=== PATIENT | female | born 1995 | race American Indian/Alaskan Native ===

== ENCOUNTER 2017-04-29 17:07 | Emergency (ER) | payer SELFPAY ==
--- NOTE | 2017-04-29 17:43 | Emergency Department Report ---
Chief Complaint: Dizziness Stated Complaint: VOMITING, DIZZY - HPI History of Present Illness: This is a 21-year-old female that presents with dizziness and nausea 2 days. Patient stated dizziness caused her to be nauseous. Denies any chest pain, shortness of breath, calf pain, calf tenderness, hemoptysis, fever, chills, numbness or tingling. Patient states she had a panic attack the past couple days. Patient denies any allergies past medical history hypertension. - Exam Vital Signs: Vital Signs 04/29/17 17:33 Temperature 99.3 F Pulse Rate 95 H Respiratory 18 Rate Blood Pressure 137/96 O2 Sat by Pulse 100 Oximetry Physical Exam: GENERAL: The patient is a well-developed, well-nourished female in no apparent distress. Patient is alert and acting appropriately for age. Alert and oriented 3, no apparent distress, normal gait, atraumatic. LUNGS: Clear to auscultation. Non labor breathing. No intercostal retractions. Symmetrical with respiration, no wheezing, no rales, or crackles. HEART: Regular rate and rhythm without murmur, rubs or gallops. No reproducible. S1, S2 present, regular rate and rhythm without murmur, no rubs, no gallops. NEUROLOGIC: Cranial nerves II through XII are grossly intact. Alert and oriented x 3. Normal gait. Symmetrical strength and sensation. Reflexes 2+ throughout. Cerebellar testing normal. GCS score of 15. MSE screening note: Focused history and physical exam performed. Due to findings the following was ordered: 1- This initial assessment/diagnostic orders/clinical plan/ treatment(s) is/are subject to change based on pt's health status, clinical progression and re- assessment by fellow clinical providers in the ED. Further treatment and workup at subsequent clinical provers discretion. Patient/guardians urged not to elope from ED as their condition may be serious if not clinically assessed and managed. 2-EKG, orthostatic vital signs 3-CBC, CMP, UA, serum test ED Disposition for MSE Condition: Stable
[2017-04-29 18:04] LABS: Basophils % (Auto) 0.2 % (0.0-1.8); Eosinophils % (Auto) 0.1 % (0.0-4.3); Hematocrit 42.1 % (30.3-42.9); Hemoglobin 14.2 gm/dl (10.1-14.3); Mean Corpuscular HGB Conc 34 % (30-34); Mean Corpuscular Hemoglobin 31 pg (28-32); Mean Corpuscular Volume 91 fl (79-97); Platelet Count 308 K/mm3 (140-440); Red Blood Count 4.61 M/mm3 (3.65-5.03); Red Cell Distribution Width 12.5 % (13.2-15.2); White Blood Count 13.1 K/mm3 (4.5-11.0)
[2017-04-29 18:24] LABS: Alanine Aminotransferase 28 units/L (7-56); Albumin 4.3 g/dL (3.9-5); Albumin/Globulin Ratio 1.1 %; Alkaline Phosphatase 74 units/L (35-129); Anion Gap 19 mmol/L; BUN/Creatinine Ratio 15; Blood Urea Nitrogen 9 mg/dL (7-17); Calcium 9.3 mg/dL (8.4-10.2); Carbon Dioxide 25 mmol/L (22-30); Glucose 98 mg/dL (65-100); Potassium 3.3 mmol/L (3.6-5.0); Sodium 144 mmol/L (137-145); Total Protein 8.1 g/dL (6.3-8.2)
[2017-04-29 18:47] LABS: Bacteria,Urine 2+ /HPF (Negative); Bilirubin,Urine NEG (Negative); Blood,Urine LG (Negative); Ketones,Urine TR mg/dL (Negative); Leukocyte Esterase,Urine SM (Negative); Mucus,Urine 3+ /HPF; Nitrite,Urine POS (Negative); Urobilinogen,Urine < 2.0 mg/dL (<2.0)
[2017-04-29] MEDS ORDERED: ZOFRAN ODT PO ONE (23:19)
[2017-04-30] MEDS ORDERED: BACTRIM DS PO ONE (01:12)
--- NOTE | 2017-04-30 01:17 | Emergency Department Report ---
ED General Adult HPI - General Chief complaint: Dizziness Stated complaint: VOMITING, DIZZY Time Seen by Provider: 04/29/17 23:19 Source: patient Mode of arrival: Ambulatory Limitations: No Limitations - History of Present Illness Initial comments: Patient is a 21-year-old female past history of recurrent UTIs who presents with tooth pain and nausea and vomiting. Patient states that nausea and vomiting has been going on for the last 3 days. Patient states that vomiting is nonbloody nonbilious she says she hasn't been able to tolerate much orally. She states that she only has some slight abdominal pain there is a 3 out of 10 in severity stab sharp like pain located diffusely throughout her belly. It occurs when she vomits. Patient also states that she has some upper tooth pain that has been going on for a couple days as well. She denies having any bloody stools chest pain or any shortness of breath. Severity scale (0 -10): 0 - Related Data Previous Rx's Medication Instructions Recorded Last Taken Type Ondansetron [Zofran Odt] 4 mg PO Q8HR PRN #15 tab.rapdis 04/30/17 Unknown Rx Penicillin V Potassium 500 mg PO Q6HR #28 tablet 04/30/17 Unknown Rx Sulfamethoxazole/Trimethoprim 1 each PO BID #10 tablet 04/30/17 Unknown Rx [Bactrim DS TAB] Allergies Allergy/AdvReac Type Severity Reaction Status Date / Time No Known Allergies Allergy Unverified 04/29/17 17:37 ED Review of Systems ROS: Stated complaint: VOMITING, DIZZY Other details as noted in HPI Constitutional: denies: chills, fever Eyes: denies: eye pain, eye discharge, vision change ENT: dental pain. denies: ear pain, throat pain Respiratory: denies: cough, shortness of breath, wheezing Cardiovascular: denies: chest pain, palpitations Endocrine: no symptoms reported Gastrointestinal: nausea, vomiting. denies: abdominal pain, diarrhea Genitourinary: denies: urgency, dysuria, discharge Musculoskeletal: denies: back pain, joint swelling, arthralgia Skin: denies: rash, lesions Neurological: denies: headache, weakness, paresthesias Psychiatric: denies: anxiety, depression Hematological/Lymphatic: denies: easy bleeding, easy bruising ED Past Medical Hx - Past Medical History Hx Hypertension: Yes () - Surgical History Additional Surgical History: tonsillectomy - Social History Smoking Status: Never Smoker Substance Use Type: Alcohol - Medications Home Medications: Home Medications Medication Instructions Recorded Confirmed Last Taken Type Ondansetron [Zofran Odt] 4 mg PO Q8HR PRN #15 tab.rapdis 04/30/17 Unknown Rx Penicillin V Potassium 500 mg PO Q6HR #28 tablet 04/30/17 Unknown Rx Sulfamethoxazole/Trimethoprim 1 each PO BID #10 tablet 04/30/17 Unknown Rx [Bactrim DS TAB] ED Physical Exam - General Limitations: No Limitations General appearance: alert, in no apparent distress - Head Head exam: Present: atraumatic, normocephalic - Eye Eye exam: Present: normal appearance - ENT ENT exam: Present: mucous membranes moist - Neck Neck exam: Present: normal inspection - Respiratory Respiratory exam: Present: normal lung sounds bilaterally. Absent: respiratory distress - Cardiovascular Cardiovascular Exam: Present: regular rate, normal rhythm. Absent: systolic murmur, diastolic murmur, rubs, gallop - GI/Abdominal GI/Abdominal exam: Present: soft, normal bowel sounds - Extremities Exam Extremities exam: Present: normal inspection - Back Exam Back exam: Present: normal inspection - Neurological Exam Neurological exam: Present: alert, oriented X3 - Psychiatric Psychiatric exam: Present: normal affect, normal mood - Skin Skin exam: Present: warm, dry, intact, normal color. Absent: rash ED Course Vital Signs 04/29/17 04/29/17 04/29/17 17:33 21:41 21:44 Temperature 99.3 F 98.3 F Pulse Rate 95 H 99 H Respiratory 18 20 Rate Blood Pressure 137/96 137/85 O2 Sat by Pulse 100 98 100 Oximetry 04/29/17 04/29/17 04/29/17 23:00 23:16 23:30 Temperature Pulse Rate 101 H 110 H Respiratory 26 H 13 22 Rate Blood Pressure 131/87 134/85 O2 Sat by Pulse 100 99 100 Oximetry 04/29/17 23:46 Temperature Pulse Rate 89 Respiratory 14 Rate Blood Pressure 134/85 O2 Sat by Pulse 98 Oximetry ED Medical Decision Making - Lab Data Result diagrams: 04/29/17 17:47 04/29/17 17:47 Lab Results 04/29/17 04/29/17 04/29/17 Range/Units 17:47 17:47 17:47 WBC 13.1 H (4.5-11.0) K/mm3 RBC 4.61 (3.65-5.03) M/mm3 Hgb 14.2 (10.1-14.3) gm/dl Hct 42.1 (30.3-42.9) % MCV 91 (79-97) fl MCH 31 (28-32) pg MCHC 34 (30-34) % RDW 12.5 L (13.2-15.2) % Plt Count 308 (140-440) K/mm3 Lymph % (Auto) 23.9 (13.4-35.0) % [place] % (Auto) 7.7 H (0.0-7.3) % Eos % (Auto) 0.1 (0.0-4.3) % Baso % (Auto) 0.2 (0.0-1.8) % Lymph # 3.1 (1.2-5.4) K/mm3 Jessamine # 1.0 H (0.0-0.8) K/mm3 Eos # 0.0 (0.0-0.4) K/mm3 Baso # 0.0 (0.0-0.1) K/mm3 Seg Neutrophils % 68.1 (40.0-70.0) % Seg Neutrophils # 8.9 H (1.8-7.7) K/mm3 Sodium 144 (137-145) mmol/L Potassium 3.3 L (3.6-5.0) mmol/L Chloride 103.0 (98-107) mmol/L Carbon Dioxide 25 (22-30) mmol/L Anion Gap 19 mmol/L BUN 9 (7-17) mg/dL Creatinine 0.6 L (0.7-1.2) mg/dL Estimated GFR > 60 ml/min BUN/Creatinine Ratio 15 % Glucose 98 (65-100) mg/dL Calcium 9.3 (8.4-10.2) mg/dL Total Bilirubin 0.40 (0.1-1.2) mg/dL AST 20 (5-40) units/L ALT 28 (7-56) units/L Alkaline Phosphatase 74 (35-129) units/L Total Protein 8.1 (6.3-8.2) g/dL Albumin 4.3 (3.9-5) g/dL Albumin/Globulin Ratio 1.1 % HCG, Qual Negative (Negative) Urine Color (Yellow) Urine Turbidity (Clear) Urine pH (5.0-7.0) Ur Specific [place] (1.003-1.030) Urine Protein (Negative) mg/dL Urine Glucose (UA) (Negative) mg/dL Urine Ketones (Negative) mg/dL Urine Blood (Negative) Urine Nitrite (Negative) Urine Bilirubin (Negative) Urine Urobilinogen (<2.0) mg/dL Ur Leukocyte Esterase (Negative) Urine WBC (Auto) (0.0-6.0) /HPF Urine RBC (Auto) (0.0-6.0) /HPF U Epithel Cells (Auto) (0-13.0) /HPF Urine Bacteria (Auto) (Negative) /HPF Urine Mucus /HPF 04/29/17 Range/Units 18:33 WBC (4.5-11.0) K/mm3 RBC (3.65-5.03) M/mm3 Hgb (10.1-14.3) gm/dl Hct (30.3-42.9) % MCV (79-97) fl MCH (28-32) pg MCHC (30-34) % RDW (13.2-15.2) % Plt Count (140-440) K/mm3 Lymph % (Auto) (13.4-35.0) % [place] % (Auto) (0.0-7.3) % Eos % (Auto) (0.0-4.3) % Baso % (Auto) (0.0-1.8) % Lymph # (1.2-5.4) K/mm3 [place] # (0.0-0.8) K/mm3 Eos # (0.0-0.4) K/mm3 Baso # (0.0-0.1) K/mm3 Seg Neutrophils % (40.0-70.0) % Seg Neutrophils # (1.8-7.7) K/mm3 Sodium (137-145) mmol/L Potassium (3.6-5.0) mmol/L Chloride (98-107) mmol/L Carbon Dioxide (22-30) mmol/L Anion Gap mmol/L BUN (7-17) mg/dL Creatinine (0.7-1.2) mg/dL Estimated GFR ml/min BUN/Creatinine Ratio % Glucose (65-100) mg/dL Calcium (8.4-10.2) mg/dL Total Bilirubin (0.1-1.2) mg/dL AST (5-40) units/L ALT (7-56) units/L Alkaline Phosphatase (35-129) units/L Total Protein (6.3-8.2) g/dL Albumin (3.9-5) g/dL Albumin/Globulin Ratio % HCG, Qual (Negative) Urine Color Dark yellow (Yellow) Urine Turbidity Hazy (Clear) Urine pH 5.0 (5.0-7.0) Ur Specific [place] 1.027 (1.003-1.030) Urine Protein 30 mg/dl (Negative) mg/dL Urine Glucose (UA) Neg (Negative) mg/dL Urine Ketones Tr (Negative) mg/dL Urine Blood Lg (Negative) Urine Nitrite Pos (Negative) Urine Bilirubin Neg (Negative) Urine Urobilinogen < 2.0 (<2.0) mg/dL Ur Leukocyte Esterase Sm (Negative) Urine WBC (Auto) 16.0 H (0.0-6.0) /HPF Urine RBC (Auto) 36.0 (0.0-6.0) /HPF U Epithel Cells (Auto) 4.0 (0-13.0) /HPF Urine Bacteria (Auto) 2+ (Negative) /HPF Urine Mucus 3+ /HPF - EKG Data -: EKG Interpreted by Or - EKG Data 04/30/17 01:19 EKG shows normal sinus rhythm no ST segment elevation noted T-wave inversion normal axis - Medical Decision Making Chief medical diagnosis: UTI Differential diagnosis: Gastroenteritis, hyponatremia, hypokalemia, periapical abscess I will get urinalysis, CBC, CMP, oral Zofran, oral Bactrim and by mouth challenge Patient is feeling better after Zofran and by mouth challenge I will send patient home with Bactrim, Zofran and penicillin. Discussed outpatient patient agrees to plan additional verbal discharge instructions were given. Critical care attestation.: If time is entered above; I have spent that time in minutes in the direct care of this critically ill patient, excluding procedure time. ED Disposition Clinical Impression: Periapical abscess Nausea and vomiting Qualifiers: Vomiting type: unspecified Vomiting Intractability: non-intractable Qualified Code(s): R11.2 - Nausea with vomiting, unspecified UTI (urinary tract infection) Qualifiers: Urinary tract infection type: acute cystitis Hematuria presence: without hematuria Qualified Code(s): N30.00 - Acute cystitis without hematuria Disposition: TO HOME OR SELFCARE Is pt being admited?: No Does the pt Need Aspirin: No Condition: Stable Instructions: Urinary Tract Infection in Women (ED), Acute Nausea and Vomiting (ED), Dental Abscess (ED) Prescriptions: Ondansetron [Zofran Odt] 4 mg PO Q8HR PRN #15 tab.rapdis PRN Reason: Nausea Penicillin V Potassium 500 mg PO Q6HR #28 tablet Sulfamethoxazole/Trimethoprim [Bactrim DS TAB] 1 each PO BID #10 tablet Referrals: JOYA AHN MD [Staff Physician] - 3-5 Days
[2017-04-30 02:05] VITALS: BP 123/75
== END 2017-04-30 02:07 | disposition home or self-care (01) ==
LOC: ED 17:07
DX: K04.7 Periapical abscess without sinus (principal); N30.00 Acute cystitis without hematuria; R11.2 Nausea with vomiting, unspecified
CPT/HCPCS: 36415; 80053; 81001; 84703; 85025; 93005; 93010; Q0162

== ENCOUNTER 2017-05-11 12:27 | Emergency (ER) | payer SELFPAY ==
[2017-05-11 13:08] VITALS: BP 137/81
[2017-05-11 14:08] LABS: Bacteria,Urine 2+ /HPF (Negative); Bilirubin,Urine NEG (Negative); Blood,Urine MOD (Negative); Ketones,Urine NEG (Negative); Leukocyte Esterase,Urine MOD (Negative); Mucus,Urine 3+ /HPF; Nitrite,Urine NEG (Negative); Urobilinogen,Urine < 2.0 mg/dL (<2.0)
[2017-05-11 14:11] LABS: RBC,Urine > 182.0 /HPF (0.0-6.0)
[2017-05-11 14:12] LABS: WBC,Urine > 182.0 /HPF (0.0-6.0)
[2017-05-11 14:12] LABS: Basophils % (Auto) 0.2 % (0.0-1.8); Eosinophils % (Auto) 2.5 % (0.0-4.3); Hematocrit 41.2 % (30.3-42.9); Hemoglobin 14.1 gm/dl (10.1-14.3); Mean Corpuscular HGB Conc 34 % (30-34); Mean Corpuscular Hemoglobin 31 pg (28-32); Mean Corpuscular Volume 92 fl (79-97); Platelet Count 238 K/mm3 (140-440); Red Blood Count 4.49 M/mm3 (3.65-5.03); White Blood Count 12.2 K/mm3 (4.5-11.0)
[2017-05-11] MEDS ORDERED: NACL 0.9% 1000 ML 1,000 ML IV ONE (14:24)
[2017-05-11] MEDS ORDERED: ROCEPHIN/NS 1 GM/50 ML 1 GM/50 ML BAG IV ONE (14:24)
[2017-05-11] MEDS ORDERED: NACL ONE (14:35)
[2017-05-11] MEDS ORDERED: ROCEPHIN ONE (14:36)
[2017-05-11] MEDS ORDERED: ROCEPHIN IV ONE (14:44)
[2017-05-11 15:00] LABS: Alanine Aminotransferase 62 units/L (7-56); Albumin 3.9 g/dL (3.9-5); Albumin/Globulin Ratio 1.2 %; Alkaline Phosphatase 63 units/L (35-129); Anion Gap 18 mmol/L; BUN/Creatinine Ratio 18; Blood Urea Nitrogen 9 mg/dL (7-17); Calcium 8.9 mg/dL (8.4-10.2); Carbon Dioxide 24 mmol/L (22-30); Chloride 102.2 mmol/L (98-107); Glucose 90 mg/dL (65-100); Lipase 17 units/L (13-60); Potassium 3.6 mmol/L (3.6-5.0); Sodium 141 mmol/L (137-145); Total Protein 7.2 g/dL (6.3-8.2)
[2017-05-11 15:01] LABS: Bilirubin,Direct < 0.2 mg/dL (0-0.2); Bilirubin,Indirect 0.1 mg/dL
--- NOTE | 2017-05-11 15:07 | Emergency Department Report ---
ED Female HPI - General Chief complaint: Urogenital-Female Stated complaint: ABDOMINAL PAIN/N/V Time Seen by Provider: 05/11/17 13:17 Source: patient Mode of arrival: Ambulatory Limitations: No Limitations - History of Present Illness Initial comments: This is a 21-year-old female nontoxic, well nourished in appearance, no acute signs of distress presents to the ED with c/o of dysuria, polyuria, pelvic pain and vaginal discharge x2 days. Patient describes vaginal discharge as white thick without foul odor. Patient denies any abdominal pain. PAtient stated she is not concerned about STD and does not want empirical treatment but does want testing. Patient denies any back pain, shortness of breathe, fever, chills, headache, nausea, vomiting, chest pain, shortness of breathe, stuff neck. Patient denies any allergies or PMH. MD Complaint: vaginal discharge, dysuria, pelvic pain -: Gradual, days(s) (2) Radiation: non-radiating Severity: mild Severity scale (0 -10): 8 Quality: cramping, burning (urination) Consistency: constant Improves with: none Worsens with: urination Are you Now?: No Last Menstrual Period: 03/29/17 EDC: 01/03/18 Associated Symptoms: vaginal discharge, abdominal pain (pelvic pain), dysuria. denies: vaginal bleeding, nausea/vomiting, fever/chills, headaches, loss of appetite, hematuria, rash, seizure, shortness of breath, syncope, weakness - Related Data Previous Rx's Medication Instructions Recorded Last Taken Type Ondansetron [Zofran Odt] 4 mg PO Q8HR PRN #15 tab.rapdis 04/30/17 Unknown Rx Penicillin V Potassium 500 mg PO Q6HR #28 tablet 04/30/17 Unknown Rx Sulfamethoxazole/Trimethoprim 1 each PO BID #10 tablet 04/30/17 Unknown Rx [Bactrim DS TAB] Sulfamethoxazole/Trimethoprim 1 each PO BID #14 tablet 05/11/17 Unknown Rx [Bactrim DS TAB] Allergies Allergy/AdvReac Type Severity Reaction Status Date / Time No Known Allergies Allergy Unverified 04/29/17 17:37 ED Review of Systems ROS: Stated complaint: ABDOMINAL PAIN/N/V Other details as noted in HPI Constitutional: denies: chills, fever Eyes: denies: eye pain, eye discharge, vision change ENT: denies: ear pain, throat pain Respiratory: denies: cough, shortness of breath, wheezing Cardiovascular: denies: chest pain, palpitations Endocrine: no symptoms reported Gastrointestinal: other (pelvic pain). denies: abdominal pain, nausea, diarrhea Genitourinary: dysuria, frequency, discharge. denies: urgency Musculoskeletal: denies: back pain, joint swelling, arthralgia Skin: denies: rash, lesions Neurological: denies: headache, weakness, paresthesias Psychiatric: denies: anxiety, depression Hematological/Lymphatic: denies: easy bleeding, easy bruising ED Past Medical Hx - Past Medical History Hx Hypertension: Yes () - Surgical History Additional Surgical History: tonsillectomy - Social History Smoking Status: Current Every Day Smoker Substance Use Type: Alcohol - Medications Home Medications: Home Medications Medication Instructions Recorded Confirmed Last Taken Type Ondansetron [Zofran Odt] 4 mg PO Q8HR PRN #15 tab.rapdis 04/30/17 Unknown Rx Penicillin V Potassium 500 mg PO Q6HR #28 tablet 04/30/17 Unknown Rx Sulfamethoxazole/Trimethoprim 1 each PO BID #10 tablet 04/30/17 Unknown Rx [Bactrim DS TAB] Sulfamethoxazole/Trimethoprim 1 each PO BID #14 tablet 05/11/17 Unknown Rx [Bactrim DS TAB] ED Physical Exam - General Limitations: No Limitations General appearance: alert, in no apparent distress - Head Head exam: Present: atraumatic, normocephalic, normal inspection - Eye Eye exam: Present: normal appearance, PERRL, EOMI. Absent: scleral icterus, conjunctival injection, nystagmus, periorbital swelling, periorbital tenderness Pupils: Present: normal accommodation - ENT ENT exam: Present: normal exam, normal orophraynx, mucous membranes moist, TM's normal bilaterally, normal external ear exam - Neck Neck exam: Present: normal inspection, full ROM. Absent: tenderness, meningismus, lymphadenopathy, thyromegaly - Respiratory Respiratory exam: Present: normal lung sounds bilaterally. Absent: respiratory distress, wheezes, rales, rhonchi, stridor, chest wall tenderness, accessory muscle use, decreased breath sounds, prolonged expiratory - Cardiovascular Cardiovascular Exam: Present: regular rate, normal rhythm, normal heart sounds. Absent: irregular rhythm, systolic murmur, diastolic murmur, rubs, gallop - GI/Abdominal GI/Abdominal exam: Present: soft, normal bowel sounds. Absent: distended, tenderness, guarding, rebound, rigid, diminished bowel sounds - Expanded GI/Abdominal Exam Expanded GI/Abdominal exam: Absent: psoas sign, obturator sign, heel tap sign, Gomes's sign, Rovsing's sign, tenderness at Mcburney's Point - Rectal Rectal exam: Present: deferred - External exam: Present: normal external exam, other (chaperoned Onnie present during exam). Absent: erythema, swelling, lesions, lacerations, ecchymosis, bleeding Speculum exam: Present: normal speculum exam, cervical discharge (white/yellow with odor), other (chaperoned Onnie present during exam). Absent: erythema, vaginal discharge, vaginal bleeding, foreign body, tissue, laceration Bi-manual exam: Present: normal bi-manual exam, other (chaperoned Onnie present during exam). Absent: cervical motion tendernes, adnexal tenderness, adnexal mass, uterine enlargement, uterine tenderness - Extremities Exam Extremities exam: Present: normal inspection, full ROM, normal capillary refill. Absent: tenderness, pedal edema, joint swelling, calf tenderness - Back Exam Back exam: Present: normal inspection, full ROM. Absent: tenderness, CVA tenderness (R), CVA tenderness (L), muscle spasm, paraspinal tenderness, vertebral tenderness, rash noted - Neurological Exam Neurological exam: Present: alert, oriented X3, CN II-XII intact, normal gait, reflexes normal - Psychiatric Psychiatric exam: Present: normal affect, normal mood - Skin Skin exam: Present: warm, dry, intact, normal color. Absent: rash ED Course Vital Signs 05/11/17 13:02 Temperature 98.4 F Pulse Rate 100 H Respiratory 18 Rate Blood Pressure 137/81 O2 Sat by Pulse 99 Oximetry - Reevaluation(s) Reevaluation #1: 05/11/17 15:09 Patient is speaking in full sentences with no signs of distress noted. ED Medical Decision Making - Lab Data Result diagrams: 05/11/17 13:50 05/11/17 13:50 - Medical Decision Making This is a 21-year-old female that presents with UTI. Patient is stable and was examined by me. UA elevated RBC and WBC. Wet prep and G/C obtained. G/C pending. Wet prep negative with many polymophonuclearn cells. Patient was notified to return in 3 days to obtained results of G/C. CBC, CMP, Lip, serum obtained within normal. PAtient received 1G of Rocephin IV and Azithromycin 1g PO in the ED fopr UTI and possible STDF exposure. CT with contrast of abd/pelvis obtained and dictated by radiologist within normal limits. Patient notified of CT results with no further questions noted by the the patient. Patient received Bactrim at discharge. Patient was instructed Follow-up with a primary care doctor in 3-5 days or if symptoms worsen and continue return to emergency room as soon as possible. At time time of discharge, the patient does not seem toxic or ill in appearance. No acute signs of distress noted. Patient agrees to discharge treatment plan of care. No further questions noted by the patient. Critical care attestation.: If time is entered above; I have spent that time in minutes in the direct care of this critically ill patient, excluding procedure time. ED Disposition Clinical Impression: Possible exposure to STD UTI (urinary tract infection) Qualifiers: Urinary tract infection type: site unspecified Hematuria presence: with hematuria Qualified Code(s): N39.0 - Urinary tract infection, site not specified Disposition: DC-01 TO HOME OR SELFCARE Is pt being admited?: No Does the pt Need Aspirin: No Condition: Stable Instructions: Sulfamethoxazole/Trimethoprim (By mouth), Urinary Tract Infection in Women (ED) Additional Instructions: Follow-up with a primary care doctor in 3-5 days or if symptoms worsen and continue return to emergency room as soon as possible. Return in 3 days to obtain results of gonorrhea/chlamydia Prescriptions: Sulfamethoxazole/Trimethoprim [Bactrim DS TAB] 1 each PO BID #14 tablet Referrals: PRIMARY CAREMD [Primary Care Provider] - 3-5 Days MENDY GREER MD [Staff Physician] - 3-5 Days [facility] [Outside] - 3-5 Days [facility] [Outside] - 3-5 Days Forms: Work/School Release Form(ED)
--- NOTE | 2017-05-11 15:35 | Cat Scan Report ---
FINAL REPORT PROCEDURE: CT ABDOMEN PELVIS W CON TECHNIQUE: Computerized axial tomography of the abdomen and pelvis was performed after the IV injection of iodinated nonionic contrast. HISTORY: pelvic pain COMPARISON: No prior studies are available for comparison. FINDINGS: Visualized lower thorax: No significant abnormality. Liver: Normal size and attenuation. Spleen: Normal size and attenuation. Gallbladder and biliary system: Normal. Pancreas: Normal. Adrenals: Normal. Kidneys: Normal. GI tract: Normal. Lymph nodes and mesentery: Normal. Vasculature: Normal. Bladder: Urinary bladder is minimally filled. Alarcon appear mildly thickened.. Reproductive organs: Uterus is retroverted. Peritoneum: Minimal free fluid is noted in the pelvic cavity which is within physiologic limits.. Musculoskeletal structures: Diffuse disc bulge is noted at L5-S1. Other: None. IMPRESSION: Thickened urinary bladder alarcon is most likely secondary to lack of distension. However cystitis cannot be excluded. Clinical correlation is recommended. Retroverted uterus. Diffuse disc bulge at L5-S1.
[2017-05-11] MEDS ORDERED: ZITHROMAX PO ONE (16:39)
== END 2017-05-11 17:04 | disposition home or self-care (01) ==
LOC: ED 12:27
DX: N39.0 Urinary tract infection, site not specified (principal); F17.200 Nicotine dependence, unspecified, uncomplicated; Z90.89 Acquired absence of other organs
CPT/HCPCS: 36415; 74177; 80048; 80074; 81001; 83690; 84703; 85025; 87210; 87591; 96361; 96374; 99284; J0696; J7030; Q9967

== ENCOUNTER 2017-06-05 17:03 | Emergency (ER) | payer OTHER ==
[2017-06-05 17:53] LABS: Hemoglobin 14.1 gm/dl (10.1-14.3); Mean Corpuscular HGB Conc 34 % (30-34); Mean Corpuscular Hemoglobin 31 pg (28-32); Mean Corpuscular Volume 91 fl (79-97); Platelet Count 325 K/mm3 (140-440); Red Blood Count 4.62 M/mm3 (3.65-5.03); Red Cell Distribution Width 13.1 % (13.2-15.2)
[2017-06-05 18:00] LABS: Bacteria,Urine 1+ /HPF (Negative); Bilirubin,Urine NEG (Negative); Blood,Urine LG (Negative); Color,Urine Yellow (Yellow); Mucus,Urine 3+ /HPF; Nitrite,Urine NEG (Negative)
[2017-06-05 18:04] LABS: BUN/Creatinine Ratio 15; Blood Urea Nitrogen 9 mg/dL (7-17); Calcium 9.2 mg/dL (8.4-10.2); Hemolysis Index 8
[2017-06-05 23:59] VITALS: BP 135/93
[2017-06-06] MEDS ORDERED: TYLENOL ONE (00:02)
[2017-06-06] MEDS ORDERED: TYLENOL PO ONE (00:06)
--- NOTE | 2017-06-06 03:41 | Ultrasound Report ---
FINAL REPORT PROCEDURE: US OB < = 14 WEEKS FETUS TECHNIQUE: Real-time transabdominal sonography of the uterus, placenta, amniotic fluid, adnexa, and fetus was performed with image documentation. Measurements were obtained to determine age/size. M-mode Doppler was used to document heartbeat. CPT 46576 HISTORY: with vaginal bleed COMPARISON: No prior studies are available for comparison. FINDINGS: No intrauterine is identified. Uterus measures 7.5 x 4.5 x 5 centimeters. Endometrium measures 6.5 millimeters in thickness. Right ovary is not seen. Left ovary measures 1.6 x 1.2 x 1.5 centimeters. There is no mass. There is minimal free pelvic fluid. IMPRESSION: There is no evidence of intrauterine or ectopic .
--- NOTE | 2017-06-06 03:42 | Ultrasound Report ---
FINAL REPORT PROCEDURE: US OB TRANSVAGINAL TECHNIQUE: Real-time transvaginal sonography of the uterus, placenta, amniotic fluid, adnexa, and fetus was performed with image documentation. Measurements were obtained to determine age/size. M-mode Doppler was used to document heartbeat. HISTORY: with vaginal bleed COMPARISON: No prior studies are available for comparison. FINDINGS: No intrauterine is identified. Uterus measures 7.5 x 4.5 x 5 centimeters. Endometrium measures 6.5 millimeters in thickness. Right ovary is not seen. Left ovary measures 1.6 x 1.2 x 1.5 centimeters. There is no mass. There is minimal free pelvic fluid. IMPRESSION: There is no evidence of intrauterine or ectopic .
--- NOTE | 2017-06-06 04:24 | Emergency Department Report ---
ED Female HPI - General Chief complaint: Vaginal Bleeding Stated complaint: VAG BLEEDING Time Seen by Provider: 06/06/17 03:56 Source: patient, RN notes reviewed Mode of arrival: Ambulatory Limitations: No Limitations - History of Present Illness Initial comments: This is a 21-year-old female who was previously unknown to this provider, she is 2, para 1, isn't quite certain when her last menstrual period is. Patient is ex-, and is quite certain that her blood type is Rh+. Presents to the ER with left lower quadrant abdominal cramping and vaginal bleeding. Symptoms have been going on for 1 day, to me denies vomiting, admits to one episode of loose watery bowel movement, and denies irritative and obstructive urinary symptoms. MD Complaint: vaginal bleeding, pelvic pain -: Gradual Location: LLQ Radiation: non-radiating Severity: mild Quality: cramping Consistency: intermittent Improves with: none Worsens with: none Are you Now?: Yes Associated Symptoms: vaginal bleeding, abdominal pain. denies: vaginal discharge, nausea/vomiting, fever/chills, headaches, loss of appetite, dysuria, hematuria, rash, seizure, shortness of breath, syncope, weakness - Related Data Sexually active: Yes Previous Rx's Medication Instructions Recorded Last Taken Type Ondansetron [Zofran Odt] 4 mg PO Q8HR PRN #15 tab.rapdis 04/30/17 Unknown Rx Penicillin V Potassium 500 mg PO Q6HR #28 tablet 04/30/17 Unknown Rx Sulfamethoxazole/Trimethoprim 1 each PO BID #10 tablet 04/30/17 Unknown Rx [Bactrim DS TAB] Sulfamethoxazole/Trimethoprim 1 each PO BID #14 tablet 05/11/17 Unknown Rx [Bactrim DS TAB] Acetaminophen [Tylenol Arthritis] 650 mg PO Q6HR PRN #30 tablet.er 06/06/17 Unknown Rx Doxylamine Succinate/Vit B6 1 each PO QHS PRN #30 tablet. 06/06/17 Unknown Rx [Maude Davila 10-10 mg Tablet] Vit Calc,Iron,Folic 1 each PO QDAY #30 tablet 06/06/17 Unknown Rx [ Vitamins] Allergies Allergy/AdvReac Type Severity Reaction Status Date / Time No Known Allergies Allergy Unverified 04/29/17 17:37 ED Review of Systems ROS: Stated complaint: VAG BLEEDING Other details as noted in HPI ED Past Medical Hx - Past Medical History Hx Hypertension: Yes () - Surgical History Additional Surgical History: tonsillectomy - Social History Smoking Status: Never Smoker Substance Use Type: None - Medications Home Medications: Home Medications Medication Instructions Recorded Confirmed Last Taken Type Ondansetron [Zofran Odt] 4 mg PO Q8HR PRN #15 tab.rapdis 04/30/17 Unknown Rx Penicillin V Potassium 500 mg PO Q6HR #28 tablet 04/30/17 Unknown Rx Sulfamethoxazole/Trimethoprim 1 each PO BID #10 tablet 04/30/17 Unknown Rx [Bactrim DS TAB] Sulfamethoxazole/Trimethoprim 1 each PO BID #14 tablet 05/11/17 Unknown Rx [Bactrim DS TAB] Acetaminophen [Tylenol Arthritis] 650 mg PO Q6HR PRN #30 tablet.er 06/06/17 Unknown Rx Doxylamine Succinate/Vit B6 1 each PO QHS PRN #30 tablet. 06/06/17 Unknown Rx [Diccandie Dr 10-10 mg Tablet] Vit Calc,Iron,Folic 1 each PO QDAY #30 tablet 06/06/17 Unknown Rx [ Vitamins] ED Physical Exam - General Limitations: No Limitations General appearance: alert, in no apparent distress - Head Head exam: Present: atraumatic, normocephalic - Eye Eye exam: Present: normal appearance, EOMI. Absent: nystagmus - ENT ENT exam: Present: normal exam, normal orophraynx, mucous membranes moist, normal external ear exam - Neck Neck exam: Present: normal inspection, full ROM - Respiratory Respiratory exam: Present: normal lung sounds bilaterally. Absent: respiratory distress - Cardiovascular Cardiovascular Exam: Present: regular rate, normal rhythm, normal heart sounds. Absent: systolic murmur, diastolic murmur, rubs, gallop - GI/Abdominal GI/Abdominal exam: Present: soft, normal bowel sounds. Absent: distended, tenderness, guarding, rebound, rigid, pulsatile mass - External exam: Present: normal external exam Speculum exam: Present: normal speculum exam, cervical discharge Bi-manual exam: Present: normal bi-manual exam, other (escorted by nurse Gurdeep Iraheta). Absent: cervical motion tendernes, adnexal tenderness, adnexal mass - Extremities Exam Extremities exam: Present: normal inspection - Back Exam Back exam: Present: normal inspection, full ROM. Absent: tenderness, CVA tenderness (R), paraspinal tenderness, vertebral tenderness - Neurological Exam Neurological exam: Present: alert, oriented X3, CN II-XII intact, normal gait, other (Extraocular movements intact. Tongue midline. No facial droop. Facial sensation intact to light touch in the V1, V2, V3 distribution bilaterally. 5 and 5 strength in 4 extremities.. Sensation is intact to light touch in 4 extremities.). Absent: motor sensory deficit - Psychiatric Psychiatric exam: Present: normal affect, normal mood - Skin Skin exam: Present: warm, dry, intact, normal color. Absent: rash ED Course Vital Signs 06/05/17 06/05/17 06/06/17 17:15 23:58 00:07 Temperature 98.6 F 98 F Pulse Rate 111 H 86 Respiratory 18 20 18 Rate Blood Pressure 143/96 135/93 O2 Sat by Pulse 100 Oximetry ED Medical Decision Making - Lab Data Result diagrams: 06/05/17 17:31 06/05/17 17:36 Vital Signs 06/05/17 06/05/17 06/06/17 17:15 23:58 00:07 Temperature 98.6 F 98 F Pulse Rate 111 H 86 Respiratory 18 20 18 Rate Blood Pressure 143/96 135/93 O2 Sat by Pulse 100 Oximetry - Radiology Data Radiology results: report reviewed, image reviewed [facility] ultrasound ultrasound, interpreted by radiology: No evidence of intrauterine or ectopic , unremarkable ultrasound - Medical Decision Making Differential diagnosis, including without limited to: Ectopic , miscarriage, threatened miscarriage Assessment and plan: 21-year-old female, ex-, she is very certain that she is Rh+, with quantitative hCG of approximately 450 and vaginal bleeding. She is afebrile with reassuring vital signs, no abdominal tenderness, no gynecologic tenderness, and is hemodynamically stable. Patient has been in the ER for over 10 hours without clinical decompensation. Patient does not want to wait around for her arteries to be redrawn, she indicates she is going to come back in 48 hours for repeat physical exam and quantitative hCG, to ascertain whether or not she is more likely to be an early ectopic, or an early miscarriage. Patient is reliable to follow-up, she is instructed to discontinue sexual activity, and she is also going to be contacted by case management in the morning when they get here, to assist in initiation of emergency Medicaid for . Critical care attestation.: If time is entered above; I have spent that time in minutes in the direct care of this critically ill patient, excluding procedure time. ED Disposition Clinical Impression: Miscarriage Disposition: DC-01 TO HOME OR SELFCARE Is pt being admited?: No Does the pt Need Aspirin: No Condition: Stable Instructions: Spontaneous Miscarriage (ED) Additional Instructions: Rest and avoid heavy lifting, and avoid strenuous physical activity. Do not have sex until cleared by an [facility] doctor. Return in 2 days/48 hours for repeat quantitative hCG, type and screen, physical exam. Take the medications as needed/directed. Return to the ER [facility] with new pain, worsened pain, migration of pain, fevers, chills, lethargy, irritability, projectile vomiting, change in mental status, confusion, inability to tolerate liquid feeds. Return to the ER right away with inability to speak, bleeding more than 2 pads soaked per hour, lightheadedness, chest pain, shortness of breath, loss of consciousness. Referrals: JOYA MEDEIROS MD [Primary Care Provider] - 3-5 Days [facility] [Provider Group] - 3-5 Days [facility] [Provider Group] - 3-5 Days [facility] [Provider Group] - 3-5 Days
== END 2017-06-06 05:19 | disposition home or self-care (01) ==
LOC: ED 17:03
DX: O03.9 Complete or unspecified spontaneous abortion without complication (principal); Z3A.00 Weeks of gestation of pregnancy not specified
CPT/HCPCS: 36415; 76801; 76817; 80048; 81001; 84702; 85027; 99284

== ENCOUNTER 2017-06-06 23:03 | Emergency (ER) | payer SELFPAY ==
[2017-06-07 09:38] VITALS: BP 117/71
--- NOTE | 2017-06-07 11:03 | Emergency Department Report ---
ED Female HPI - General Chief complaint: Abdominal Pain Stated complaint: ABD PAIN Time Seen by Provider: 06/07/17 10:37 Source: patient Mode of arrival: Ambulatory Limitations: No Limitations - History of Present Illness Initial comments: Ms. Constantino is a 21 years old and very pleasant female, this is her second visit to the ER for vaginal bleeding and lower abdominal crampy pain. Patient was not sure about her last menstrual period. she had an ultrasound that showed no intrauterine regnancy and no concern for ectopic . Her B- hCG at that time was 400. Patient denied any dizziness or syncope. No nausea no vomiting. No urinary symptoms. She stated that her vaginal bleeding is much less than the last time when she was here, denied any clots or passing tissues. MD Complaint: vaginal bleeding -: days(s) Severity scale (0 -10): 3 Quality: cramping Consistency: intermittent Are you Now?: Yes - Related Data Previous Rx's Medication Instructions Recorded Last Taken Type Ondansetron [Zofran Odt] 4 mg PO Q8HR PRN #15 tab.rapdis 04/30/17 Unknown Rx Penicillin V Potassium 500 mg PO Q6HR #28 tablet 04/30/17 Unknown Rx Sulfamethoxazole/Trimethoprim 1 each PO BID #10 tablet 04/30/17 Unknown Rx [Bactrim DS TAB] Sulfamethoxazole/Trimethoprim 1 each PO BID #14 tablet 05/11/17 Unknown Rx [Bactrim DS TAB] Acetaminophen [Tylenol Arthritis] 650 mg PO Q6HR PRN #30 tablet.er 06/06/17 Unknown Rx Doxylamine Succinate/Vit B6 1 each PO QHS PRN #30 tablet. 06/06/17 Unknown Rx [Maude Davila 10-10 mg Tablet] Vit Calc,Iron,Folic 1 each PO QDAY #30 tablet 06/06/17 Unknown Rx [ Vitamins] Ondansetron [Zofran Odt] 4 mg PO Q8HR PRN #14 tab.rapdis 06/07/17 Unknown Rx traMADol [Ultram 50 MG tab] 50 mg PO Q4HR PRN #14 tablet 06/07/17 Unknown Rx Allergies Allergy/AdvReac Type Severity Reaction Status Date / Time No Known Allergies Allergy Unverified 04/29/17 17:37 ED Review of Systems ROS: Stated complaint: ABD PAIN Other details as noted in HPI Comment: All other systems reviewed and negative Constitutional: denies: chills, fever Respiratory: denies: cough, orthopnea, shortness of breath, SOB with exertion Cardiovascular: denies: chest pain Gastrointestinal: abdominal pain. denies: nausea, vomiting, diarrhea, constipation, hematemesis Genitourinary: denies: urgency Neurological: denies: headache, weakness, numbness, paresthesias Psychiatric: denies: depression ED Past Medical Hx - Past Medical History Previous Medical History?: No Hx Hypertension: Yes () - Surgical History Past Surgical History?: No Additional Surgical History: tonsillectomy - Social History Smoking Status: Never Smoker Substance Use Type: None - Medications Home Medications: Home Medications Medication Instructions Recorded Confirmed Last Taken Type Ondansetron [Zofran Odt] 4 mg PO Q8HR PRN #15 tab.rapdis 04/30/17 Unknown Rx Penicillin V Potassium 500 mg PO Q6HR #28 tablet 04/30/17 Unknown Rx Sulfamethoxazole/Trimethoprim 1 each PO BID #10 tablet 04/30/17 Unknown Rx [Bactrim DS TAB] Sulfamethoxazole/Trimethoprim 1 each PO BID #14 tablet 05/11/17 Unknown Rx [Bactrim DS TAB] Acetaminophen [Tylenol Arthritis] 650 mg PO Q6HR PRN #30 tablet.er 06/06/17 Unknown Rx Doxylamine Succinate/Vit B6 1 each PO QHS PRN #30 tablet.dr 06/06/17 Unknown Rx [Maude Davila 10-10 mg Tablet] Vit Calc,Iron,Folic 1 each PO QDAY #30 tablet 06/06/17 Unknown Rx [ Vitamins] Ondansetron [Zofran Odt] 4 mg PO Q8HR PRN #14 tab.rapdis 06/07/17 Unknown Rx traMADol [Ultram 50 MG tab] 50 mg PO Q4HR PRN #14 tablet 06/07/17 Unknown Rx ED Physical Exam - General Limitations: No Limitations General appearance: alert, in no apparent distress - Head Head exam: Present: atraumatic, normocephalic, normal inspection - Eye Eye exam: Present: normal appearance, PERRL - ENT ENT exam: Present: normal exam, normal orophraynx, mucous membranes moist - Neck Neck exam: Present: normal inspection, full ROM. Absent: tenderness, meningismus, lymphadenopathy, thyromegaly - Respiratory Respiratory exam: Present: normal lung sounds bilaterally. Absent: respiratory distress, wheezes, rales, rhonchi, stridor, chest wall tenderness, accessory muscle use, decreased breath sounds, prolonged expiratory - Cardiovascular Cardiovascular Exam: Present: regular rate, normal rhythm, normal heart sounds - GI/Abdominal GI/Abdominal exam: Present: soft, normal bowel sounds. Absent: distended, tenderness, guarding, rebound, rigid, organomegaly, mass, bruit, pulsatile mass , hernia - Extremities Exam Extremities exam: Present: normal inspection, full ROM, normal capillary refill - Back Exam Back exam: Present: normal inspection. Absent: tenderness, CVA tenderness (R), CVA tenderness (L) - Neurological Exam Neurological exam: Present: alert, oriented X3, CN II-XII intact, normal gait - Skin Skin exam: Present: warm, intact, normal color ED Course Vital Signs 06/06/17 06/07/17 06/07/17 23:38 05:03 09:36 Temperature 97.8 F 97.7 F Pulse Rate 92 H 103 H 85 Respiratory 18 14 16 Rate Blood Pressure 123/78 134/82 Blood Pressure 117/71 [Right] O2 Sat by Pulse 97 99 96 Oximetry ED Medical Decision Making - Radiology Data Radiology results: report reviewed Referring Physician: CHAUNCEY TANNER Patient Name: TAEY CONSTANTINO Date of : 1995 Sex: Female Report Date: 2017-06-05 Report Status: [place] [address] Ultrasound Report Signed Patient: TAYE CONSTANTINO MR#: [id number] : 1995 Acct:[id number] Age/Sex: 21 / F ADM Date: 06/05/17 Loc: ED Attending Dr: Ordering Physician: CHAUNCEY TANNER MD Date of Service: 06/06/17 Procedure(s): US OB transvaginal Accession Number(s): [id number] cc: CHAUNCEY TANNER MD FINAL REPORT PROCEDURE: US OB TRANSVAGINAL TECHNIQUE: Real-time transvaginal sonography of the uterus, placenta, amniotic fluid, adnexa, and fetus was performed with image documentation. Measurements were obtained to determine age/size. M-mode Doppler was used to document heartbeat. HISTORY: with vaginal bleed COMPARISON: No prior studies are available for comparison. FINDINGS: No intrauterine is identified. Uterus measures 7.5 x 4.5 x 5 centimeters. Endometrium measures 6.5 millimeters in thickness. Right ovary is not seen. Left ovary measures 1.6 x 1.2 x 1.5 centimeters. There is no mass. There is minimal free pelvic fluid. IMPRESSION: There is no evidence of intrauterine or ectopic . Transcribed By: CO Dictated By: ASHISH JONES MD Electronically Authenticated By: ASHISH JONES MD Signed Date/Time: 06/05/172337 DD/ 37 TD/TT: 06/05/172337 - Medical Decision Making I believe this patient has a complete miscarriage, her initial beta hCG was 420 2 days ago and is 157. I reviewed patient transvaginal ultrasound was done on the June 062016 which she did not show any intrauterine or ectopic . Patient advised to follow-up with her OB doctor for further management. Critical care attestation.: If time is entered above; I have spent that time in minutes in the direct care of this critically ill patient, excluding procedure time. ED Disposition Clinical Impression: Miscarriage Disposition: DC-01 TO HOME OR SELFCARE Is pt being admited?: No Condition: Stable Instructions: Spontaneous Miscarriage (ED), Abdominal Pain (ED) Prescriptions: Ondansetron [Zofran Odt] 4 mg PO Q8HR PRN #14 tab.rapdis PRN Reason: Nausea And Vomiting traMADol [Ultram 50 MG tab] 50 mg PO Q4HR PRN #14 tablet PRN Reason: Pain Referrals: CASSIA CALHOUN MD [Staff Physician] - 3-5 Days
[2017-06-07] MEDS ORDERED: TORADOL IM ONE (11:06)
== END 2017-06-07 14:56 | disposition home or self-care (01) ==
LOC: ED 23:03
DX: O03.9 Complete or unspecified spontaneous abortion without complication (principal); I10 Essential (primary) hypertension; Z3A.00 Weeks of gestation of pregnancy not specified
CPT/HCPCS: 36415; 84702; 86900; 86901; 96372; 99283; J1885

== ENCOUNTER 2017-06-10 09:09 | Emergency (ER) | payer OTHER ==
[2017-06-10 09:20] VITALS: BP 143/91
[2017-06-10 10:41] LABS: Basophils % (Auto) 0.2 % (0.0-1.8); Eosinophils # (Auto) 0.1 K/mm3 (0.0-0.4); Eosinophils % (Auto) 1.3 % (0.0-4.3); Hematocrit 39.3 % (30.3-42.9); Hemoglobin 13.2 gm/dl (10.1-14.3); Lymphocytes # (Auto) 1.8 K/mm3 (1.2-5.4); Lymphocytes % (Auto) 22.7 % (13.4-35.0); Mean Corpuscular HGB Conc 34 % (30-34); Mean Corpuscular Hemoglobin 31 pg (28-32); Mean Corpuscular Volume 92 fl (79-97); Monocytes # (Auto) 0.9 K/mm3 (0.0-0.8); Monocytes % (Auto) 10.6 % (0.0-7.3); Platelet Count 252 K/mm3 (140-440); Red Blood Count 4.25 M/mm3 (3.65-5.03); Red Cell Distribution Width 13.2 % (13.2-15.2)
[2017-06-10 11:46] LABS: Bilirubin,Urine NEG (Negative); Blood,Urine LG (Negative); Color,Urine Yellow (Yellow); Mucus,Urine 3+ /HPF; Nitrite,Urine NEG (Negative); Protein,Urine <15 mg/dL mg/dL (Negative); Urobilinogen,Urine < 2.0 mg/dL (<2.0)
== END 2017-06-10 14:30 | disposition left against medical advice (07) ==
LOC: ED 09:09
DX: N93.9 Abnormal uterine and vaginal bleeding, unspecified (principal); Z53.21 Procedure and treatment not carried out due to patient leaving prior to being seen by health care provider
CPT/HCPCS: 36415; 81001; 84702; 85025; 86850; 86900; 86901

== ENCOUNTER 2017-08-10 11:18 | Emergency (ER) | payer MEDICAID ==
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
[2017-08-10 12:41] VITALS: BP 125/76
== END 2017-08-10 12:46 | disposition home or self-care (01) ==
LOC: ED 11:18
DX: T81.4XXA Infection following a procedure, initial encounter (principal); Y92.9 Unspecified place or not applicable; S80.212A Abrasion, left knee, initial encounter; F17.200 Nicotine dependence, unspecified, uncomplicated
CPT/HCPCS: 99282

== ENCOUNTER 2017-08-26 15:51 | Emergency (ER) | payer MEDICAID ==
[2017-08-26 16:27] VITALS: BP 133/69
== END 2017-08-26 19:02 | disposition left against medical advice (07) ==
LOC: ED 15:51
DX: L08.9 Local infection of the skin and subcutaneous tissue, unspecified (principal); Z53.21 Procedure and treatment not carried out due to patient leaving prior to being seen by health care provider

== ENCOUNTER 2017-11-04 21:28 | Emergency (ER) | payer MEDICAID ==
[2017-11-04 22:09] LABS: Basophils % (Auto) 0.2 % (0.0-1.8); Eosinophils # (Auto) 0.1 K/mm3 (0.0-0.4); Eosinophils % (Auto) 0.7 % (0.0-4.3); Hematocrit 41.7 % (30.3-42.9); Hemoglobin 14.2 gm/dl (10.1-14.3); Lymphocytes # (Auto) 3.6 K/mm3 (1.2-5.4); Lymphocytes % (Auto) 29.9 % (13.4-35.0); Mean Corpuscular HGB Conc 34 % (30-34); Mean Corpuscular Hemoglobin 31 pg (28-32); Mean Corpuscular Volume 90 fl (79-97); Monocytes # (Auto) 0.9 K/mm3 (0.0-0.8); Monocytes % (Auto) 7.1 % (0.0-7.3); Platelet Count 367 K/mm3 (140-440); Red Blood Count 4.65 M/mm3 (3.65-5.03); Red Cell Distribution Width 13.9 % (13.2-15.2)
[2017-11-04 22:21] LABS: Alanine Aminotransferase 25 units/L (7-56); Albumin 4.1 g/dL (3.9-5); BUN/Creatinine Ratio 16; Blood Urea Nitrogen 8 mg/dL (7-17); Calcium 9.5 mg/dL (8.4-10.2); Hemolysis Index 2
[2017-11-04 23:44] LABS: Amorphous Crystals,Urine Few; Bacteria,Urine 4+ /HPF (Negative); Mucus,Urine 3+ /HPF
[2017-11-04 23:53] LABS: Bilirubin,Urine NEG (Negative); Blood,Urine SM (Negative); Color,Urine Yellow (Yellow); Protein,Urine <15 mg/dL mg/dL (Negative)
[2017-11-05] MEDS ORDERED: ZOFRAN IV ONE (08:55)
[2017-11-05] MEDS ORDERED: NACL 0.9% 1000 ML 1,000 ML IV ONE ×2 (08:55→10:18)
--- NOTE | 2017-11-05 09:33 | Emergency Department Report ---
ED N/V/D HPI - General Chief complaint: Nausea/Vomiting/Diarrhea Stated complaint: N/V, 9 WEEKS Time Seen by Provider: 11/05/17 08:46 Source: patient Mode of arrival: Ambulatory Limitations: No Limitations - History of Present Illness Initial comments: 22-year-old female and 2 miscarriages approximately 9 weeks by LMP presents with complaint of 3 days of persistent nausea vomiting and abdominal pain. Patient primarily complaining of episodes of nausea and vomiting states she has been feeling very nauseous within the last 3-4 days. States she intends to follow-up with [facility] but has not yet had outpatient follow-up. Patient had ultrasound done at [facility] which as per patient showed a normally developing gestation. Denies fevers or chills but does state that she has increased urinary frequency. States she was prescribed an outpatient regimen of antibiotics but has not been able to take it because of persistent nausea and vomiting. States she was given prescription for diclofenac just which she cannot fill because of its cost. MD complaint: nausea, vomiting - Related Data Previous Rx's Medication Instructions Recorded Last Taken Type Ondansetron [Zofran Odt] 4 mg PO Q8HR PRN #15 tab.rapdis 04/30/17 Unknown Rx Penicillin V Potassium 500 mg PO Q6HR #28 tablet 04/30/17 Unknown Rx Sulfamethoxazole/Trimethoprim 1 each PO BID #10 tablet 04/30/17 Unknown Rx [Bactrim DS TAB] Sulfamethoxazole/Trimethoprim 1 each PO BID #14 tablet 05/11/17 Unknown Rx [Bactrim DS TAB] Acetaminophen [Tylenol Arthritis] 650 mg PO Q6HR PRN #30 tablet.er 06/06/17 Unknown Rx Doxylamine Succinate/Vit B6 1 each PO QHS PRN #30 tablet. 06/06/17 Unknown Rx [Maude Davila 10-10 mg Tablet] Vit Calc,Iron,Folic 1 each PO QDAY #30 tablet 06/06/17 Unknown Rx [ Vitamins] Ondansetron [Zofran Odt] 4 mg PO Q8HR PRN #14 tab.rapdis 06/07/17 Unknown Rx traMADol [Ultram 50 MG tab] 50 mg PO Q4HR PRN #14 tablet 06/07/17 Unknown Rx Sulfamethoxazole/Trimethoprim 1 each PO BID #14 tablet 08/10/17 Unknown Rx [Bactrim DS TAB] Marialuisa Root [Marialuisa] 250 mg PO TID PRN #1 bottle 11/05/17 Unknown Rx Nitrofurantoin Monohyd/M-Cryst 100 mg PO BID #14 capsule 11/05/17 Unknown Rx [Macrobid 100 mg Capsule] Ondansetron [Zofran Odt] 4 mg PO Q8H PRN #12 tab.rapdis 11/05/17 Unknown Rx Allergies Allergy/AdvReac Type Severity Reaction Status Date / Time No Known Allergies Allergy Verified 11/04/17 21:29 ED Review of Systems ROS: Stated complaint: N/V, 9 WEEKS Other details as noted in HPI ED Past Medical Hx - Past Medical History Previous Medical History?: No Hx Hypertension: No - Surgical History Past Surgical History?: Yes Additional Surgical History: tonsillectomy - Social History Smoking Status: Former Smoker Substance Use Type: None - Medications Home Medications: Home Medications Medication Instructions Recorded Confirmed Last Taken Type Ondansetron [Zofran Odt] 4 mg PO Q8HR PRN #15 tab.rapdis 04/30/17 Unknown Rx Penicillin V Potassium 500 mg PO Q6HR #28 tablet 04/30/17 Unknown Rx Sulfamethoxazole/Trimethoprim 1 each PO BID #10 tablet 04/30/17 Unknown Rx [Bactrim DS TAB] Sulfamethoxazole/Trimethoprim 1 each PO BID #14 tablet 05/11/17 Unknown Rx [Bactrim DS TAB] Acetaminophen [Tylenol Arthritis] 650 mg PO Q6HR PRN #30 tablet.er 06/06/17 Unknown Rx Doxylamine Succinate/Vit B6 1 each PO QHS PRN #30 tablet.dr 06/06/17 Unknown Rx [Maude Davila 10-10 mg Tablet] Vit Calc,Iron,Folic 1 each PO QDAY #30 tablet 06/06/17 Unknown Rx [ Vitamins] Ondansetron [Zofran Odt] 4 mg PO Q8HR PRN #14 tab.rapdis 06/07/17 Unknown Rx traMADol [Ultram 50 MG tab] 50 mg PO Q4HR PRN #14 tablet 06/07/17 Unknown Rx Sulfamethoxazole/Trimethoprim 1 each PO BID #14 tablet 08/10/17 Unknown Rx [Bactrim DS TAB] Marialuisa Root [Marialuisa] 250 mg PO TID PRN #1 bottle 11/05/17 Unknown Rx Nitrofurantoin Monohyd/M-Cryst 100 mg PO BID #14 capsule 11/05/17 Unknown Rx [Macrobid 100 mg Capsule] Ondansetron [Zofran Odt] 4 mg PO Q8H PRN #12 tab.rapdis 11/05/17 Unknown Rx ED Physical Exam - General Limitations: No Limitations General appearance: alert, in no apparent distress - Head Head exam: Present: atraumatic, normocephalic - Eye Eye exam: Present: normal appearance, PERRL, EOMI - ENT ENT exam: Present: mucous membranes moist - Neck Neck exam: Present: normal inspection - Respiratory Respiratory exam: Present: normal lung sounds bilaterally. Absent: respiratory distress - Cardiovascular Cardiovascular Exam: Present: regular rate, normal rhythm. Absent: systolic murmur, diastolic murmur, rubs, gallop - GI/Abdominal GI/Abdominal exam: Present: soft, normal bowel sounds - Extremities Exam Extremities exam: Present: normal inspection - Back Exam Back exam: Present: normal inspection - Neurological Exam Neurological exam: Present: alert, oriented X3 - Psychiatric Psychiatric exam: Present: normal affect, normal mood - Skin Skin exam: Present: warm, dry, intact, normal color. Absent: rash ED Course Vital Signs 11/04/17 11/05/17 11/05/17 21:29 08:56 08:58 Temperature 98.4 F 98.2 F Pulse Rate 104 H 73 Respiratory 16 16 16 Rate Blood Pressure 119/80 Blood Pressure 115/66 [Left] O2 Sat by Pulse 97 99 Oximetry ED Medical Decision Making - Lab Data Result diagrams: 11/04/17 21:42 11/04/17 21:42 - Medical Decision Making A/P: Nausea and vomiting of 1-ultrasound shows IUP at approximately 9 weeks 5 days with small subchorionic hemorrhage. Patient has no vaginal bleeding at this time 2-possible UTI as per patient's symptoms and urinalysis. Urine culture sent. Will treat empirically with Macrobid. Patient given 1 dose of IV ceftriaxone while in ED. 3-she experienced significant relief of nausea with doses of IV Reglan and Zofran. Patient already has prescription for DayQuil just states that she cannot fill it due to cost. I advised patient to apply for emergency Medicaid given her current status and advise her to follow up with both primary care and [facility]. I advised patient that Zofran can be tetratogenic according to some studies of this medicine. Patient understands this risk and is still interested in having a short course of the medicine as needed for nausea. I advised the patient to change her can also help alison nausea and vomiting associated with . 4- follow-up with [facility]. I advised the patient's return to the ED for any development of flank pain return of nausea and vomiting fevers and chills. Patient is fully lucid awake alert and oriented 3. Vital signs stable for discharge. Critical care attestation.: If time is entered above; I have spent that time in minutes in the direct care of this critically ill patient, excluding procedure time. ED Disposition Clinical Impression: Nausea and vomiting during Urinary tract infection Qualifiers: Urinary tract infection type: acute cystitis Hematuria presence: without hematuria Qualified Code(s): N30.00 - Acute cystitis without hematuria Disposition: TO HOME OR SELFCARE Is pt being admited?: No Does the pt Need Aspirin: No Condition: Stable Instructions: Acute Nausea and Vomiting (ED), Urinary Tract Infection in Women (ED) Prescriptions: Marialuisa Root [Marialuisa] 250 mg PO TID PRN #1 bottle PRN Reason: Nausea Nitrofurantoin Monohyd/M-Cryst [Macrobid 100 mg Capsule] 100 mg PO BID #14 capsule Ondansetron [Zofran Odt] 4 mg PO Q8H PRN #12 tab.rapdis PRN Reason: Nausea Referrals: [facility] [Provider Group] - 3-5 Days [facility] [Provider Group] - 3-5 Days Time of Disposition: 12:42
[2017-11-05] MEDS ORDERED: REGLAN IV ONE (10:19)
[2017-11-05] MEDS ORDERED: cefTRIAXone 1 GM in NACL 0.9% 20 ML IV NR (10:30)
--- NOTE | 2017-11-05 12:07 | Ultrasound Report ---
ULTRASOUND OB LESS THAN 14 WEEKS FETUS ULTRASOUND OB TRANSVAGINAL HISTORY: Abdominal pain during . COMPARISON: None. TECHNIQUE: Transabdominal and transvaginal ultrasound with color doppler interrogation. FINDINGS: Uterus: The uterus measures 11 x 7 x 8 cm. No uterine mass is identified. The cervix is unremarkable. Endometrium: An intrauterine gestational sac containing a small pole and yolk sac are identified. Heart rate measures 178 beats per minute. A small subchorionic hemorrhage is identified along the anterior, inferior gestational sac. Estimated age on ultrasound is 9 weeks, 5 days. Right ovary: Not visualized. Left ovary: 2.4 x 1.9 x 1.7 cm. A 1.5 cm cyst is identified within the left ovary. No pelvic fluid or mass is identified. Normal color doppler interrogation. IMPRESSION: Viable, single intrauterine as described. Small subchorionic hemorrhage. Left ovarian cyst.
[2017-11-05 13:01] VITALS: BP 111/64
== END 2017-11-05 13:03 | disposition home or self-care (01) ==
LOC: ED 21:28
DX: O23.41 Unspecified infection of urinary tract in pregnancy, first trimester (principal); Z3A.09 9 weeks gestation of pregnancy; Z87.891 Personal history of nicotine dependence
CPT/HCPCS: 36415; 76801; 76817; 80053; 81001; 84702; 84703; 85025; 87076; 87086; 87186; 96361; 96374; 96375; 99284; J0696; J2405; J2765; J7030

== ENCOUNTER 2018-10-28 16:46 | Emergency (ER) | payer SELFPAY ==
--- NOTE | 2018-10-28 17:01 | Emergency Department Report ---
Blank Doc - Documentation Documentation: This is a 23-year-old female that presents with headache, bilateral ear aches, and dizziness. Denies any headaches. Denies worst headache or thunderclap headache. This initial assessment/diagnostic orders/clinical plan/treatment(s) is/are subject to change based on patient's health status, clinical progression and re- assessment by fellow clinical providers in the ED. Further treatment and workup at subsequent clinical providers discretion. Patient/guardians urged not to elope from the ED as their condition may be serious if not clinically assessed and managed. Initial orders include: 1- Patient sent to [facility] for further evaluation and treatment 2- labs
[2018-10-28 17:02] VITALS: BP 131/88
[2018-10-28 17:38] LABS: Basophils % (Auto) 0.3 % (0.0-1.8); Eosinophils # (Auto) 0.4 K/mm3 (0.0-0.4); Eosinophils % (Auto) 4.5 % (0.0-4.3); Hematocrit 39.6 % (30.3-42.9); Hemoglobin 14.1 gm/dl (10.1-14.3); Lymphocytes # (Auto) 2.6 K/mm3 (1.2-5.4); Lymphocytes % (Auto) 25.8 % (13.4-35.0); Mean Corpuscular HGB Conc 36 % (30-34); Mean Corpuscular Volume 87 fl (79-97); Monocytes # (Auto) 0.8 K/mm3 (0.0-0.8); Platelet Count 305 K/mm3 (140-440); Red Blood Count 4.54 M/mm3 (3.65-5.03); Red Cell Distribution Width 13.1 % (13.2-15.2)
[2018-10-28 18:00] LABS: BUN/Creatinine Ratio 18; Blood Urea Nitrogen 11 mg/dL (7-17); Calcium 9.8 mg/dL (8.4-10.2); Hemolysis Index 3
--- NOTE | 2018-10-28 19:04 | Emergency Department Report ---
ED General Adult HPI - General Chief complaint: Earache Stated complaint: EAR INFECTION IN BOTH EARS/MIGRAINE/DIZZINESS/WEAK Time Seen by Provider: 10/28/18 17:00 Source: patient Mode of arrival: Ambulatory Limitations: No Limitations - History of Present Illness Initial comments: Pt is a 23 yo female who presents to the ED with c/o bilateral ear pain worse on the left that began 4 days ago. She states she has associated rhinorrhea, light- headedness, and frontal DING. She denies any fever, vision changes, numbness, weakness, sore throat, or any other sx. Her child currently has strep throat. She states she has been taking ibuprofen and tylenol for DING without much relief. Pt states she has seasonal allergies and usually takes claritin but has not been taking it this season. PSHx of tonsillectomy and preeclampsia during her 1st 5 years ago. - Related Data Home Medications Medication Instructions Recorded Confirmed Last Taken Iron 1 tab PO DAILY 04/24/18 04/24/18 04/23/18 Previous Rx's Medication Instructions Recorded Last Taken Type Vit Calc,Iron,Folic 1 each PO QDAY #30 tablet 06/06/17 04/24/18 Rx [ Vitamins] Sulfamethoxazole/Trimethoprim 1 each PO BID #14 tablet 08/10/17 Unknown Rx [Bactrim DS TAB] Butalb/Acetaminophen/Caffeine 1 cap PO Q8HR PRN #10 cap 10/28/18 Unknown Rx [Fioricet 50-300-40 mg CAP] Neomycin/Polymyxin B/Hydrocort 4 drops OT QID 7 Days drops.susp 10/28/18 Unknown Rx [Noyykayh-Eapndnvss-Dh Ear Susp] Nitrofurantoin [place]/M-Cryst 100 mg PO Q12HR 5 Days #10 capsule 10/28/18 Unknown Rx [Macrobid CAP] Allergies Allergy/AdvReac Type Severity Reaction Status Date / Time silver Allergy Rash Verified 10/28/18 16:55 ED Review of Systems ROS: Stated complaint: EAR INFECTION IN BOTH EARS/MIGRAINE/DIZZINESS/WEAK Other details as noted in HPI Comment: All other systems reviewed and negative ED Past Medical Hx - Past Medical History Previous Medical History?: No Hx Hypertension: No Hx Diabetes: No Hx Deep Vein Thrombosis: No Hx Renal Disease: Yes (FREQ UTI) Hx Sickle Cell Disease: No Hx Seizures: No Hx Asthma: No Hx HIV: No - Surgical History Additional Surgical History: tonsillectomy - Social History Smoking Status: Never Smoker Substance Use Type: None - Medications Home Medications: Home Medications Medication Instructions Recorded Confirmed Last Taken Type Vit Calc,Iron,Folic 1 each PO QDAY #30 tablet 06/06/17 04/24/18 04/24/18 Rx [ Vitamins] Sulfamethoxazole/Trimethoprim 1 each PO BID #14 tablet 08/10/17 04/24/18 Unknown Rx [Bactrim DS TAB] Iron 1 tab PO DAILY 04/24/18 04/24/18 04/23/18 History Butalb/Acetaminophen/Caffeine 1 cap PO Q8HR PRN #10 cap 10/28/18 Unknown Rx [Fioricet 50-300-40 mg CAP] Neomycin/Polymyxin B/Hydrocort 4 drops OT QID 7 Days drops.susp 10/28/18 Unknown Rx [Dezymobg-Vjxnsiyel-Rw Ear Susp] Nitrofurantoin [place]/M-Cryst 100 mg PO Q12HR 5 Days #10 capsule 10/28/18 Unknown Rx [Macrobid CAP] ED Physical Exam - General Limitations: No Limitations General appearance: alert, in no apparent distress - Head Head exam: Present: atraumatic, normocephalic - Eye Eye exam: Present: normal appearance, PERRL - ENT ENT exam: Present: normal orophraynx, mucous membranes moist, other (left ear canal with erythema, normal TMs bilaterally, normal right canal) - Respiratory Respiratory exam: Present: normal lung sounds bilaterally. Absent: respiratory distress, wheezes, rales, rhonchi, stridor, chest wall tenderness, accessory muscle use, decreased breath sounds, prolonged expiratory - Cardiovascular Cardiovascular Exam: Present: regular rate, normal rhythm, normal heart sounds. Absent: systolic murmur, diastolic murmur, rubs, gallop - Neurological Exam Neurological exam: Present: alert, oriented X3, CN II-XII intact, normal gait. Absent: motor sensory deficit - Psychiatric Psychiatric exam: Present: normal affect, normal mood - Skin Skin exam: Present: warm, dry, intact ED Course Vital Signs 10/28/18 10/28/18 17:01 19:58 Temperature 97.9 F Pulse Rate 102 H 89 Respiratory 18 17 Rate Blood Pressure 131/88 O2 Sat by Pulse 97 99 Oximetry ED Medical Decision Making - Lab Data Result diagrams: 10/28/18 17:07 10/28/18 17:07 - Medical Decision Making Pt is a 23 yo female who presents to the ED with c/o bilateral ear pain worse on the left that began 4 days ago. She states she has associated rhinorrhea, light- headedness, and frontal DING. She denies any fever, vision changes, numbness, weakness, sore throat, or any other sx. Her child currently has strep throat. She states she has been taking ibuprofen and tylenol for DING without much relief. Pt states she has seasonal allergies and usually takes claritin but has not been taking it this season. PSHx of tonsillectomy and preeclampsia during her 1st 5 years ago. on examination left ear canal with erythema will give abx for otitis externa. discussed to take as prescribed. pt has no neuro deficits on exam pt given prescription for fiorcet. UA with evidence of UTI pt placed on abx and pyridum. advised to take all medications as prescribed. follow up with a PCP in the next 2-3 days to discuss headaches and for further evaluation. discussed in detail to return to the ED immediately for any new or worsening symptoms. Critical care attestation.: If time is entered above; I have spent that time in minutes in the direct care of this critically ill patient, excluding procedure time. ED Disposition Clinical Impression: Left otitis externa Qualifiers: Otitis externa type: unspecified type Chronicity: acute Qualified Code(s): H60.502 - Unspecified acute noninfective otitis externa, left ear Headache Qualifiers: Headache type: unspecified Headache chronicity pattern: acute headache Intractability: not intractable Qualified Code(s): R51 - Headache UTI (urinary tract infection) Qualifiers: Urinary tract infection type: acute cystitis Hematuria presence: without hemat uria Qualified Code(s): N30.00 - Acute cystitis without hematuria Disposition: -01 TO HOME OR SELFCARE Is pt being admited?: No Does the pt Need Aspirin: No Condition: Stable Instructions: Urinary Tract Infection in Women (ED), Otitis Externa (ED), Acute Headache (ED) Additional Instructions: please take all medication as prescribed. please follow up with a primary care in the next 2-3 days for evaluation to discuss headaches. return to the emergency room immediately for any new or worsening symptoms. Prescriptions: Butalb/Acetaminophen/Caffeine [Fioricet 50-300-40 mg CAP] 1 cap PO Q8HR PRN #10 cap PRN Reason: Headache Nitrofurantoin [place]/M-Cryst [Macrobid CAP] 100 mg PO Q12HR 5 Days #10 capsule Neomycin/Polymyxin B/Hydrocort [Izkxcmco-Situwjkaf-Ss Ear Susp] 4 drops OT QID 7 Days drops.susp Referrals: [facility] [Provider Group] - 2-3 Days Time of Disposition: 19:06 Print Language: BELARUSIAN
[2018-10-28 19:38] LABS: Bacteria,Urine 4+ /HPF (Negative); Bilirubin,Urine NEG (Negative); Blood,Urine SM (Negative); Color,Urine Yellow (Yellow); Hyaline Casts,Urine 2 /LPF; Mucus,Urine 3+ /HPF; Protein,Urine <15 mg/dL mg/dL (Negative); Urobilinogen,Urine < 2.0 mg/dL (<2.0)
== END 2018-10-28 19:57 | disposition home or self-care (01) ==
LOC: ED 16:46
DX: N39.0 Urinary tract infection, site not specified (principal); H60.92 Unspecified otitis externa, left ear; Z90.89 Acquired absence of other organs; Z91.048 Other nonmedicinal substance allergy status
CPT/HCPCS: 36415; 80048; 81001; 84703; 85025

== ENCOUNTER 2019-01-23 14:10 | Emergency (ER) | payer SELFPAY ==
[2019-01-23 15:31] VITALS: BP 138/85
--- NOTE | 2019-01-23 15:32 | Event Note ---
ED Screening Note Date of service: 01/23/19 Time: 15:27 ED Screening Note: 23 y/o female comes in for lower abd pain times 4 day. . Surgeries Tonsils. LMP 11/08/18. .No drugs. No smokes. This initial assessment/diagnostic orders/clinical plan/treatment(s) is/are subject to change based on patients health status, clinical progression and re- assessment by fellow clinical providers in the ED. Further treatment and workup at subsequent clinical providers discretion. Patient/guardian urged not to elope from the ED as their condition may be serious if not clinically assessed and managed. Initial orders include:
[2019-01-23 16:35] LABS: Bacteria,Urine 4+ /HPF (Negative); Bilirubin,Urine NEG (Negative); Blood,Urine SM (Negative); Color,Urine Amber (Yellow); Mucus,Urine 3+ /HPF; Urobilinogen,Urine < 2.0 mg/dL (<2.0)
[2019-01-23 16:43] LABS: Amphetamine Screen,Urine PRESUMPTIVE NEGATIVE; Benzodiazepines Screen,Urine PRESUMPTIVE NEGATIVE; Cannabinoid Screen,Urine PRESUMPTIVE NEGATIVE; Cocaine Screen,Urine PRESUMPTIVE NEGATIVE; Methadone Screen,Urine PRESUMPTIVE NEGATIVE; Opiate Screen,Urine PRESUMPTIVE NEGATIVE
== END 2019-01-23 15:42 | disposition left against medical advice (07) ==
LOC: ED 14:10
DX: R10.9 Unspecified abdominal pain (principal); Z53.21 Procedure and treatment not carried out due to patient leaving prior to being seen by health care provider
CPT/HCPCS: 80307; 81001; 87076; 87086; 87186

== ENCOUNTER 2019-03-31 15:47 | Outpatient (CLI) | payer MEDICAID ==
[2019-03-31 16:35] VITALS: BP 122/70
[2019-03-31] MEDS ORDERED: LACTATED RINGERS 500 ML IV ONE (17:17)
[2019-03-31 18:44] LABS: Bacteria,Urine 1+ /HPF (Negative); Bilirubin,Urine NEG (Negative); Blood,Urine SM (Negative); Color,Urine Amber (Yellow); Mucus,Urine 2+ /HPF; Urobilinogen,Urine < 2.0 mg/dL (<2.0)
[2019-03-31 18:46] LABS: WBC,Urine > 182.0 /HPF (0.0-6.0)
[2019-03-31 18:50] LABS: Amphetamine Screen,Urine PRESUMPTIVE NEGATIVE; Benzodiazepines Screen,Urine PRESUMPTIVE NEGATIVE; Cannabinoid Screen,Urine PRESUMPTIVE NEGATIVE; Cocaine Screen,Urine PRESUMPTIVE NEGATIVE; Methadone Screen,Urine PRESUMPTIVE NEGATIVE; Opiate Screen,Urine PRESUMPTIVE NEGATIVE
[2019-03-31] MEDS ORDERED: ceFAZolin/NS 1 GM/50 ML 1 GM/50 ML BAG IV ONE (19:30)
== END 2019-03-31 19:39 | disposition left against medical advice (07) ==
LOC: TRG 15:47
PROVIDERS: ATTEND Obstetrics & Gynecology
DX: O47.02 False labor before 37 completed weeks of gestation, second trimester (principal)
CPT/HCPCS: 80307; 81001; J0690; J7120